=== PATIENT | female | born 1990 | race Caucasian/White ===

== ENCOUNTER 2017-07-08 21:28 | Emergency (ER) | payer OTHER ==
[2017-07-08 21:34] VITALS: TEMP 98.9; BMI 33.5
[2017-07-08] MEDS ORDERED: METOCLOPRAMIDE HCL INJECTION 10 MG/2 ML VIAL IVPB ONE (23:17)
[2017-07-08] MEDS ORDERED: SODIUM CHLORIDE 1,000 ML IV STA (23:17)
[2017-07-08] MEDS ORDERED: KETOROLAC TROMETHAMINE 30 MG/1 ML VIAL IVPUSH ONE (23:20)
--- NOTE | 2017-07-08 23:38 | PDOC ---
History of Present Illness - General Chief Complaint: Headache Stated Complaint: HEADACHE Time Seen by Provider: 07/08/17 22:48 - History of Present Illness Initial Comments: 07/08/17 23:22 27 yo F with no significant pmh who presents with left sided JAIN. She reports worsening 9/10 unilateral left sided JAIN of 1 week duration. JAIN is unremitting, sharp, pulsating,in quality. States that pain is also retrorbital and radiates to left side neck, jaw and ear. Not sudden or maximal intensity in onset. States this is worse than previous JAIN's. JAIN is non positional and stable through the day, not worse in the morning or night. Complains of 2 days of left hand tingling with mild weakness. Endorses nausea without vomiting, phonophobia, photobia, dizziness, blurry vision. Denies neck stiffness, rash, abnormal auditory sensations, lacrimation, rhinorrhea, scintillating scotomas, LOC, dizziness, tinnitus, hearing loss. Denies GI/ complaints, SOB, cough. Pain not alleviated with OTC Ibuprofen and Tylenol. States that she has had decreased PO fluid intake over the past 2 weeks. Positive intake of 4 cups coffee per day.States that she was recently seen at PCP yesterday and sent out without medication. No h/o head trauma. Past History - Past Medical History Allergies/Adverse Reactions: Allergies Allergy/AdvReac Type Severity Reaction Status Date / Time No Known Allergies Allergy Verified 07/08/17 21:30 Home Medications: Ambulatory Orders NK [No Known Home Medication] 07/08/17 - Psycho/Social/Smoking Cessation Hx Suicidal Ideation: No Smoking History: Never smoked Review of Systems - Review of Systems Comments:: 07/08/17 23:38 GENERAL/CONSTITUTIONAL: No fever or chills. No weakness. HEAD, EYES, EARS, NOSE AND THROAT: No change in vision. No ear pain or discharge. No sore throat.- CARDIOVASCULAR: No chest pain or shortness of breath RESPIRATORY: No cough wheezing, or hemoptysis. GASTROINTESTINAL: + nausea. No vomiting, diarrhea or constipation. GENITOURINARY: No dysuria, frequency, or change in urination. MUSCULOSKELETAL: + Neck pain. No joint or muscle swelling or pain. No back pain. SKIN: No rash NEUROLOGIC: + headache and dizziness. + change in strength/sensation.No , loss of consciousness. ENDOCRINE: No increased thirst. No abnormal weight change HEMATOLOGIC/LYMPHATIC: No anemia, easy bleeding, or history of blood clots. ALLERGIC/IMMUNOLOGIC: No hives or skin allergy. *Physical Exam - Vital Signs Last Vital Signs Temp Pulse Resp BP Pulse Ox 98.9 F 75 18 129/69 100 07/08/17 21:30 07/08/17 21:30 07/08/17 21:30 07/08/17 21:30 07/08/17 21:30 - Physical Exam Comments: 07/08/17 23:40 GENERAL: Awake, alert, and fully oriented, in no acute distress HEAD: No signs of trauma, normocephalic, atraumatic EYES: + Injected conjunctiva BL, PERRLA, EOMI, sclera anicteric, ENT: Auricles normal inspection, hearing grossly normal, nares patent, oropharynx clear without exudates. Moist mucosa NECK: Normal ROM, supple, no lymphadenopathy, JVD, or masses. Absent Brudinski, and kernig sign. LUNGS: No distress, speaks full sentences, clear to auscultation bilaterally HEART: Regular rate and rhythm, normal S1 and S2, no murmurs, rubs or gallops, peripheral pulses normal and equal bilaterally. EXTREMITIES: Normal inspection, Normal range of motion, no edema. No clubbing or cyanosis. NEUROLOGICAL: Cranial nerves II through XII grossly intact. Normal speech, normal gait, no focal sensorimotor deficits. Normal ROSEANN, absent dysmetria on finger to nose. SKIN: Warm, Dry, normal turgor, no rashes or lesions noted. Medical Decision Making - Medical Decision Making 07/09/17 00:03 27 yo F with no significant pmh who presents with left sided JAIN. She reports worsening 1 week 910 unilateral left sided JAIN of associated with retrorbital left face, neck, jaw and ear pain.+ Not sudden or maximal intensity in onset.JAIN non positional and stable . Endorses nausea without vomiting, phonophobia, photobia, dizziness, blurry vision. No other associated symptoms. Physical exam benign. No h/o head trauma. DDx: Migraine w/out aura. Low suspicion for SAH, meningitis, cluster JAIN, or tension type JAIN. ED Course: - 1 L NS - Toradol - 25 mg PO diphenhydramine - Metoclopramide 10 mg 07/09/17 01:43 Patient stable and pain improved. Stable discharge 07/09/17 01:54 HCG- neg *DC/Admit/Observation/Transfer Diagnosis at time of Disposition: Hemiplegic migraine Qualifiers: Status migrainosus presence: without status migrainosus Intractability: intractable Qualified Code(s): G43.419 - Hemiplegic migraine, intractable, without status migrainosus - Discharge Dispostion Disposition: HOME Condition at time of disposition: Improved Admit: No - Referrals Referrals: René Nixon MD [Primary Care Provider] - - Patient Instructions Printed Discharge Instructions: Migraine Headaches (Alternative Therapy), DI for Migraine Additional Instructions: Please return to ED if you experience LOC, lightheadedness, vision changes, weakness, or worsening symptoms. Please follow up with your PCP for chronic pain management and migraine control. Avoid excess caffeine/coffee intake and increase oral water intake.
[2017-07-08] MEDS ORDERED: METOCLOPRAMIDE HCL INJECTION 10 MG/2 ML VIAL ONE (23:41)
[2017-07-08] MEDS ORDERED: KETOROLAC TROMETHAMINE 30 MG/1 ML VIAL ONE (23:41)
[2017-07-08] MEDS ORDERED: diphenhydrAMINE HCL 12.5 MG/5 ML UNIT-DOSE CUPS PO ONE (23:59)
[2017-07-09] MEDS ORDERED: diphenhydrAMINE HCL 25 MG CAPSULE (FP) PO ONE (00:06)
--- NOTE | 2017-07-09 01:03 | PDOC ---
Attending Attestation - Resident Resident Name: Sanchez Richter - ED Attending Attestation I have performed the following: I have examined & evaluated the patient, The case was reviewed & discussed with the resident, I agree w/resident's findings & plan, Exceptions are as noted - HPI HPI: 07/09/17 00:58 27-year-old female with history of headaches presents to the ER with atraumatic , hemicranial, throbbing and pressure-like headache for the past several days consistent in quality to her previous headaches but more severe when compared to previous. Patient endorses forte on sonophobia as well as nausea. Patient denies fever or petechial rash. Patient was seen by her primary care physician referred to ophthalmology further evaluation. - Physicial Exam PE: 07/09/17 01:02 Patient is awake and alert, afebrile, hemodynamically stable. Cranial nerves II through XII are grossly intact; motor is 5 of 54; there is no pronation drift; cerebellar signs are negative; gait is stable. Patient presents with mildly injected bilateral conjunctiva. There is no nuchal rigidity and Kernig and Brudzinski are negative. - Medical Decision Making 07/09/17 01:03 Patient is a well-appearing 27-year-old female who presents with atraumatic hemicranial left-sided headache consistent with her previous episodes of headaches. I do not suspect subarachnoid hemorrhage or meningitis at this time. Migraine is suspected. We'll administer Reglan with Benadryl. Will reassess. Likely discharge.
[2017-07-09 01:23] LABS: URINE APPEARANCE SLCLOUDY; URINE BILIRUBIN NEGATIVE (NEGATIVE); URINE BLOOD NEGATIVE (NEGATIVE); URINE COLOR LTYELLOW; URINE GLUCOSE (UA) NEGATIVE (NEGATIVE); URINE KETONE NEGATIVE (NEGATIVE); URINE LEUK ESTERASE NEGATIVE (NEGATIVE); URINE NITRITE NEGATIVE (NEGATIVE); URINE PROTEIN NEGATIVE (NEGATIVE); URINE UROBILINOGEN NEGATIVE mg/dL (0.2-1.0)
[2017-07-09 02:06] VITALS: BP 132/73; PULSE 85
== END 2017-07-09 02:08 | disposition home or self-care (01) ==
LOC: JER 21:28
PROC: 3E033GC Introduction of Other Therapeutic Substance into Peripheral Vein, Percutaneous Approach (ICD-10-PCS; principal; 2017-07-08)
PROC: 3E0333Z Introduction of Anti-inflammatory into Peripheral Vein, Percutaneous Approach (ICD-10-PCS; 2017-07-08)
DX: G43.419 Hemiplegic migraine, intractable, without status migrainosus (principal)
CPT/HCPCS: 81003; 84703; 99282-25